=== PATIENT | male | born 1975 | race Caucasian/White ===

== ENCOUNTER 2017-01-23 14:32 | Outpatient (CLI) | payer OTHER ==
--- NOTE | 2017-01-23 15:53 | XRAY Report ---
THREE VIEW RIGHT SHOULDER: 01/23/2017 CLINICAL INDICATION: Pain. FINDINGS: Internal and external rotational views and a scapular Y view of the right shoulder demonst rate no evidence of fracture or dislocation. The joint spaces are preserved. No radiopaque foreign danny dy is seen in the soft tissues. IMPRESSION: NORMAL RIGHT SHOULDER. JOB #: [id number] EXT JOB #:[id number]
== END 2017-01-23 14:33 | disposition home or self-care (01) ==
LOC: DI.S 14:32
PROVIDERS: ATTEND Nurse Practitioner Family
DX: M25.511 Pain in right shoulder (principal)

== ENCOUNTER 2019-05-30 08:25 | Outpatient (CLI) | payer MEDICAID, OTHER ==
--- NOTE | 2019-05-30 12:21 | XRAY Report ---
Reason: R10.32 Procedure Date: 05/30/2019 Accession Number: [id number] / [id number] Procedure: XR - Abdomen 1 View X-Ray CPT Code: 31911 Final Report FULL RESULT: EXAM: ABDOMEN RADIOGRAPHY EXAM DATE: 05/30/2019 08:45 AM. CLINICAL HISTORY: Left lower quadrant pain, chronic. COMPARISON: None. TECHNIQUE: 1 view. FINDINGS: Bowel Gas Pattern: Moderate retained stool present in the colon. Few gas distended, nondilated segments of bowel. No free air or pneumatosis. Other: Age-appropriate osseous structures. Lung bases: Visualized extent unremarkable. IMPRESSION: Moderate retained stool. The bowel gas pattern is otherwise unremarkable. [facility]
[2019-05-30 18:00] LABS: BASOPHILS # (AUTO) 0.1 10^3/uL (0.0-0.1); BASOPHILS % (AUTO) 1.2 %; EOSINOPHILS # (AUTO) 0.5 10^3/uL (0.0-0.7); EOSINOPHILS % (AUTO) 7.7 %; HGB - HEMOGLOBIN 14.1 g/dL (14.0-18.0); LYMPHOCYTES # (AUTO) 2.6 10^3/uL (1.5-3.5); LYMPHOCYTES % (AUTO) 45.2 %; MEAN CORPUSCULAR HGB CONC 31.2 g/dL (32.0-36.0); MEAN PLATELET VOLUME 10.6 fL (7.4-11.4); MONOCYTES # (AUTO) 0.5 10^3/uL (0.0-1.0); MONOCYTES % (AUTO) 9.1 %; NEUTROPHILS # (AUTO) 2.1 10^3/uL (1.5-6.6); NEUTROPHILS % (AUTO) 36.6 %; PLT - PLATELET COUNT 328 10^3/uL (130-450); RED BLOOD COUNT 4.86 10^6/uL (4.70-6.10); RED CELL DISTRIBUTION WIDTH 12.8 % (12.0-15.0); WHITE BLOOD COUNT 5.8 x10^3/uL (4.8-10.8)
[2019-05-30 18:32] LABS: ALBUMIN 4.4 g/dL (3.2-5.5); ALBUMIN/GLOBULIN RATIO 1.5 (1.0-2.2); ALKALINE PHOSPHATASE 50 IU/L (42-121); ALT ALANINE AMINOTRANSFERASE 18 IU/L (10-60); AST ASPARTATE AMINOTRANSFERASE 20 IU/L (10-42); BUN - BLOOD UREA NITROGEN 11 mg/dL (6-20); CALCIUM 9.8 mg/dL (8.5-10.3); CARBON DIOXIDE - CO2 29 mmol/L (21-32); CHLORIDE 102 mmol/L (101-111); CHOL/HDL RATIO 3.9 (<5.0); CHOLESTEROL 232 mg/dL; CREATININE 0.9 mg/dL (0.6-1.2); GFR - MDRD 93 (>89); GLUCOSE 103 mg/dL (70-100); HDL CHOLESTEROL 59 mg/dL; LDL CHOLESTEROL,CALCULATED 158 mg/dL; LDL/HDL RATIO 2.7 (<3.6); SODIUM 138 mmol/L (135-145); TOTAL PROTEIN 7.3 g/dL (6.7-8.2); VLDL CHOLESTEROL 15 mg/dL
== END 2019-05-30 08:26 | disposition home or self-care (01) ==
LOC: LAB.S 08:25
PROVIDERS: ATTEND Registered Nurse
DX: Z00.00 Encounter for general adult medical examination without abnormal findings (principal); R10.32 Left lower quadrant pain
CPT/HCPCS: 36415; 74018; 80053; 80061; 83721; 84443; 85025

== ENCOUNTER 2019-06-01 08:00 | Outpatient (CLI) | payer MEDICAID | END 2019-06-01 23:59 | disposition home or self-care (01) | LOC: LAB.R 08:00 | PROVIDERS: ATTEND Registered Nurse | DX: R10.32 Left lower quadrant pain (principal) | CPT/HCPCS: 82270 ==

== ENCOUNTER 2019-06-03 08:25 | Outpatient (CLI) | payer MEDICAID ==
--- NOTE | 2019-06-04 16:17 | Ultrasound Report ---
Reason: ABD PAIN, LLQ Procedure Date: 06/03/2019 Accession Number: [id number] / [id number] Procedure: US - Abdomen Limited CPT Code: Final Report FULL RESULT: EXAM: ABDOMEN ULTRASOUND LIMITED, RUQ EXAM DATE: 06/03/2019 08:55 AM. CLINICAL HISTORY: Intermittent left lower quadrant abdominal pain for 1 year. Patient complains of periumbilical point tenderness at the 4 o'clock position. Evaluate for hernia. COMPARISON: ABDOMEN 1 VIEW 05/30/2019 8:45 AM. TECHNIQUE: Real-time scanning was performed with static images obtained at the point of palpable concern. FINDINGS/ IMPRESSION: 1. No focal abnormality identified at the point of palpable concern in the periumbilical region. If pain persists or worsens, consider CT abdomen/pelvis with IV contrast for further evaluation. [facility]
== END 2019-06-03 08:26 | disposition home or self-care (01) ==
LOC: DI 08:25
PROVIDERS: ATTEND Registered Nurse
DX: R10.32 Left lower quadrant pain (principal)
CPT/HCPCS: 76705

== ENCOUNTER 2023-10-13 08:00 | Outpatient (CLI) | payer MEDICAID ==
--- NOTE | 2023-10-13 17:49 | XRAY Report ---
PROCEDURE: Knee 3V LT INDICATIONS: SPRAIN OF LEFT KNEE TECHNIQUE: 3 views of the knee(s) were acquired. COMPARISON: None. FINDINGS: Bones: No fractures or dislocations. No suspicious bony lesions. Soft tissues: No knee joint effusion. No suspicious soft tissue calcifications or masses. IMPRESSION: No acute bony abnormality. Reviewed by: Angel Luis Sandoval MD on 10/13/2023 5:47 PM PDT Approved by: Angel Luis Sandoval MD on 10/13/2023 5:47 PM PDT Station ID: [id number]
== END 2023-10-13 23:59 | disposition home or self-care (01) ==
LOC: DI.S 08:00
PROVIDERS: ATTEND Emergency Medicine
DX: S83.512A Sprain of anterior cruciate ligament of left knee, initial encounter (principal)

== ENCOUNTER 2023-11-04 07:28 | Outpatient (CLI) | payer MEDICAID ==
--- NOTE | 2023-11-04 09:09 | MRI Report ---
PROCEDURE: Knee LT WO INDICATIONS: L KNEE PAIN TECHNIQUE: Noncontrast sagittal PD fast spin echo and T2 fast spin echo with fat saturation, sagittal 3-D gradie nt sequence with fat saturation; coronal T1 spin echo and PD fast spin echo with fat saturation, and axial PD fast spin echo with fat saturation through the knee. COMPARISON: X-ray left knee, 10/20/2023. FINDINGS: Image quality: Excellent. Menisci: There is horizontal tear of the posterior horn the medial meniscus. The lateral meniscus dem onstrates normal morphology and internal signal. The meniscal root ligaments appear intact. Cruciate ligaments: The anterior and posterior cruciate ligaments appear intact. Medial structures: The medial collateral ligament appears intact. The posterior oblique ligament, s emimembranosus tendon insertions, and oblique popliteal ligament, and meniscocapsular junction appear intact. Visualized portions of the pes anserinus tendons appear normal. No abnormal bursal fluid. Lateral structures: The lateral collateral ligament, long and short heads of the biceps femoris tend on appear intact. The popliteus tendon appears normal; the popliteofibular ligament appears intact. The posterosuperior and anteroinferior popliteomeniscal fascicles appear intact. The arcuate and fa bellofibular ligaments appear intact, around the lateral inferior geniculate artery. Iliotibial band appears normal. Anterior structures: The quadriceps and patellar tendons appear intact. Patellar alignment is shannon l. No femoral trochlear dysplasia or ventral trochlear prominence. No edema in the infrapatellar fa t pad. Bones and cartilage: No bone marrow contusions or fractures. The cartilage of the medial and latera l femorotibial compartments, as well as the patellofemoral compartment, appears normal in thickness. Joint space: There is small knee joint effusion. There is a tiny Frias's cyst. A small synovial cyst or ganglion cyst is noted in the posterior superior medial aspect of the knee. Normal appearing syno vial plicae are incidentally noted. IMPRESSION: 1. Horizontal tear of the posterior horn the medial meniscus. 2. Small knee joint effusion. 3. A tiny Frias's cyst. 4. A small synovial cyst posterior superior medial aspect of knee. Reviewed by: Kriss Haynes MD on 11/04/2023 9:08 AM PDT Approved by: Kriss Haynes MD on 11/04/2023 9:08 AM PDT Station ID: [id number]
== END 2023-11-04 07:29 | disposition home or self-care (01) ==
LOC: DI 07:28
PROVIDERS: ATTEND Physician Assistant Surgical
DX: S83.242A Other tear of medial meniscus, current injury, left knee, initial encounter (principal); M25.462 Effusion, left knee; M71.22 Synovial cyst of popliteal space [Baker], left knee